=== PATIENT | female | born 1985 | race Caucasian/White ===

== ENCOUNTER 2021-01-21 15:30 | Outpatient (CLI) | payer BC, SELFPAY ==
--- NOTE | ~2021-01-21 | MR_ITS ---
EXAMINATION: MR brain/brain stem wo con EXAM DATE: 01/21/2021 16:29 INDICATION: Frequent falls, vertigo. TECHNIQUE: Magnetic resonance imaging (MRI) of the brain/brain stem obtained without contrast. Chanell al T1, axial diffusion, gradient echo (T2*), T1, T2, FLAIR sequences obtained. There is no prior st udy for comparison. FINDINGS: There are no areas of restricted diffusion to suggest acute infarction. There is no acute hemorrhage seen on the T2*, a hemosiderin sensitive sequence. No intraparenchymal brain mass. The ve ntricles are normal in size. There are no extra-axial collections. Flow voids are seen in the cereb ral arteries on the T2-weighted sequences consistent with their expected patency. The orbits are unr emarkable. Soft tissue is unremarkable. IMPRESSION: 1. Unremarkable brain MRI examination. Reviewed, dictated and finalized at location [facility].
== END 2021-01-21 15:31 | disposition home or self-care (01) ==
PROVIDERS: PCP Family Medicine Adolescent Medicine; Visit Provider Physician Assistant
DX: R41.0 Disorientation, unspecified (principal); Z91.81 History of falling
CPT/HCPCS: 70551

== ENCOUNTER 2023-12-31 11:09 | Emergency (ER) | payer OTHER, SELFPAY ==
--- NOTE | ~2023-12-31 | CT_ITS ---
CT of the Abdomen and Pelvis: Indication: Abdominal pain Technique: 2.5 mm axial scans were obtained through the abdomen and pelvis following intravenous adm inistration of 100 cc of Omnipaque 350. Dose reduction technique was used on this scan by utilizing a utomated exposure control and iterative reconstruction technique. The dose-length product (DLP) was 1 626.46 mGy-cm. Findings: Scans through the lung bases are unremarkable. The liver, spleen, pancreas, gallbladder, adrenals and kidneys are within normal limits. No evidence of aortic aneurysm. No lymphadenopathy. No bowel obstruction or bowel wall thickening. There is no evidence to suggest acute appendicitis. Images through the pelvis were performed. Urinary bladder unremarkable. No suspicious adnexal mass se en. Trace pelvic ascites present. There is focal inflammatory change with central fat attenuation adj acent to the sigmoid colon, likely epiploic appendageitis. No abscess or free air. Impression: Findings consistent with epiploic appendagitis adjacent to the sigmoid colon. Trace pelvic ascites. Reviewed, dictated and finalized at [facility]. Impression: Findings consistent with epiploic appendagitis adjacent to the sigmoid colon. Trace pelvic ascites.
[2023-12-31 11:19] VITALS: BP 124/75; PULSE 97; RESP 16; TEMP 36.6; O2SAT 96
--- NOTE | 2023-12-31 13:03 | ED.ABDPAIN ---
HPI - Abdominal Pain General Chief Complaint: Abdominal Pain Stated Complaint: abd pain Time Seen by Provider: 12/31/23 12:42 Source: patient Mode of arrival: ambulatory Limitations: no limitations History of Present Illness HPI narrative: 38-year-old presenting with 3 days of suprapubic and right lower quadrant abdominal pain. It is intermittent and seems to be associated when her bladder is full. It is worse when her bladder gets full and seems to be relieved somewhat by urinating. She is not having any dysuria. Went to urgent care center here for CT. Related Data Allergies Allergy/AdvReac Type Severity Reaction Status Date / Time Sulfa (Sulfonamide Allergy Unknown Verified 05/01/18 11:02 Antibiotics) Review of Systems Review of Systems: All systems reviewed & are unremarkable except as noted in HPI and below Exam Narrative: Constitutional: Generally well appearing, no acute distress Head: Atraumatic, no deformities. Eyes: Pupils equal, round, and reactive to light. Neck: Supple, no tracheal deviation, no JVD. ENMT: Mucous membranes moist Cardiovascular: S1, S2 auscultated. No murmurs, rubs, or gallops. No S3/S4. Normal Distal pulses. No peripheral edema. Respiratory: Lung sounds equal. No wheezes, rales, or rhonchi. Gastrointestinal: Abdomen was soft and mildly tender in right lower quadrant. Non-distended. No rebound or guarding. Genitourinary: Deferred Musculoskeletal: Normal muscle tone and bulk. No obvious deformities or tenderness over extremities. Skin: No rashes. Neurological: Strength 5/5 in extremities. Cranial nerves I-XII grossly intact. Distal sensation intact. Mental Status: Awake, alert and oriented x3. Follows commands Course Vital Signs Vital signs: Vital Signs Temperature 36.6 C 12/31/23 11:19 Pulse Rate 97 12/31/23 11:19 Respiratory Rate 16 12/31/23 11:19 Blood Pressure 124/75 12/31/23 11:19 Pulse Oximetry 96 12/31/23 11:19 Temperature 36.6 C 12/31/23 11:19 Pulse Rate 97 12/31/23 11:19 Respiratory Rate 16 12/31/23 11:19 Blood Pressure 124/75 12/31/23 11:19 Pulse Oximetry 96 12/31/23 11:19 MDM - Abdominal Pain MDM Narrative Medical decision making narrative: 38-year-old female presenting for abdominal pain suprapubic and right lower quadrant. Seems to be associated with chest urinate generally. Ongoing for few days. Sent by urgent care for evaluation for appendicitis. On exam she has normal vital signs, well appearing. Mildly tender in suprapubic region. Bedside test is negative. Suspect appendicitis potentially, UTI. She is not having any vaginal complaints. Obtaining abdominal workup. Labs imaging reviewed and interpreted. Labs are unremarkable. CT shows epiploic appendagitis. This is consistent with the patient's presentation is. Will give her a dose of Toradol here and start her on high-dose ibuprofen. She has ibuprofen at home and was instructed on dosing to take it. Pt feeling improved and would like to go home at this point. Return precautions were given to the patient include any new or worsening symptoms or development of and not limited to any chest pain, shortness of breath, lightheadedness, abdominal pain, fevers, chills. Patient understands and agrees. They are to follow-up with her PCP. All questions were answered. I reviewed the patient's vital signs, history, allergies, and labs and imaging workup. Lab Data 12/31/23 13:08 12/31/23 13:08 Labs: Lab Results 12/31/23 12/31/23 Range/Units 12:58 13:08 WBC 12.0 H (4.5-10.0) K/mm3 RBC 5.09 (4.2-5.4) M/mm3 Hgb 14.0 (12.0-15.0) g/dL Hct 42.3 (37.0-47.0) % MCV 83.1 (80-100) fl MCH 27.5 (26-34) pg MCHC 33.1 (32-36) g/dl RDW 13.2 (11.5-14.5) % Plt Count 361 (150-375) k/mm3 MPV 9.3 (7.4-10.4) fl Immature Gran % (Auto) 0.2 (0-0.5) % Neut % (Auto) 79.9 H (45.5-73.1) % Lymph % (Aut
[2023-12-31 13:09] LABS: Appearance Urine Clear (Clear); Bilirubin Urine Negative (Negative); Blood Urine Negative (Negative); Color Urine Yellow (Yellow); Glucose Urine UA Negative (Negative); Ketones Urine Negative (Negative); Leukocyte Esterase Ur Negative LEU/UL (Negative); Nitrate Urine Negative (Negative); Protein Urine Negative (Negative); Urobilinogen Urine 0.2 mg/dL (<2.0); pH Urine 5.5 (5.0-9.0)
[2023-12-31 13:14] LABS: Basophils Percent Auto 0.3 % (0.2-1.2); Eosinophils Absolute Auto 0.1 K/mm3 (0-0.3); Eosinophils Percent Auto 0.9 % (0-4.4); Hematocrit 42.3 % (37.0-47.0); Immature Granulocyte Absolute 0.02 K/mm3 (0.00-0.031); Immature Granulocyte Percent A 0.2 % (0-0.5); Lymphocytes Absolute Auto 1.81 K/mm3 (0.9-3.2); Lymphocytes Percent Auto 15.1 % (18.3-44.2); Mean Corpuscular HGB Conc 33.1 g/dl (32-36); Mean Corpuscular Hemoglobin 27.5 pg (26-34); Mean Corpuscular Volume 83.1 fl (80-100); Mean Platelet Volume 9.3 fl (7.4-10.4); Monocytes Absolute Auto 0.4 K/mm3 (0.1-0.6); Monocytes Percent Auto 3.6 % (2.6-8.5); Neutrophils Absolute Auto 9.6 K/mm3 (1.3-6.7); Neutrophils Percent Auto 79.9 % (45.5-73.1); Platelet Count Result 361 k/mm3 (150-375); Red Blood Count 5.09 M/mm3 (4.2-5.4); Red Cell Distribution Width 13.2 % (11.5-14.5)
[2023-12-31 13:14] LABS: Add Urine Microscopic? NO; Specific Grav Ur 1.003 (1.001-1.035)
[2023-12-31 13:21] LABS: Pregnancy On Board Control Positive; Urine Pregnancy Test Negative
[2023-12-31 13:34] LABS: Alanine Aminotransferase 22 U/L (6-35); Albumin Level 4.7 g/dL (3.5-5.1); Alkaline Phosphatase 108 U/L (38-126); Anion Gap 9 mmol/L (4-12); Aspartate Amino Transferase 24 U/L (14-36); Bilirubin,Total 0.7 mg/dL (0.2-1.3); Blood Urea Nitrogen 7 mg/dL (7-17); Calcium 9.1 mg/dL (8.4-10.2); Carbon Dioxide 22 mmol/L (22-30); Chloride 105 mmol/L (98-107); Estimated CRCL calculation 150 ml/min; Estimated Glomerular Filt Rate > 60; Glucose 101 mg/dL (65-110); Lipase 67 U/L (23-300); Potassium 3.6 mmol/L (3.4-5.0); Sodium 136 mmol/L (137-145)
[2023-12-31 14:35] VITALS: BP 121/77; PULSE 90; RESP 19; O2SAT 98
== END 2023-12-31 14:35 | disposition home or self-care (01) ==
PROVIDERS: Emergency Provider Emergency Medicine; PCP Family Medicine Adolescent Medicine
DX: K63.89 Other specified diseases of intestine (principal)
CPT/HCPCS: 36415; 74177; 80053; 81003; 81025; 83605; 83690; 85025; 99284; Q9967